=== PATIENT | male | born 1970 | race Caucasian/White ===

== ENCOUNTER 2021-04-04 07:28 | Emergency (ER) | payer MEDICAID, OTHER ==
[2021-04-04 07:46] VITALS: BP 146/101
[2021-04-04] MEDS ORDERED: PROPARACAINE 0.5% OPHTH DROPS 15 ML LEFTEYE STA (07:49)
--- NOTE | 2021-04-04 08:29 | ED Physician Documentation ---
PD HPI OPHTHO - Stated complaint Stated Complaint: SCRATCHED LT EYE - Chief complaint Chief Complaint: Heent - History obtained from History obtained from: Patient - Additional information Additional information: Pt comes to the ED c/o L eye redness, irritation, and drainage for the past 24 hours. He states that he has had seasonal allergies, and thinks he rubbed his eye too much, and scratched it. No distinct incidence of noticing a FB enter his eye. No fevers, chills, or other signs of illness. Pt does not wear contacts, but does use glasses. No change in vision in L eye. Review of Systems Ten Systems: 10 systems reviewed and negative Constitutional: reports: Reviewed and negative Eyes: reports: Photophobia, Discharge, Irritation Ears: reports: Reviewed and negative Nose: reports: Reviewed and negative Throat: reports: Reviewed and negative Cardiac: reports: Reviewed and negative Respiratory: reports: Reviewed and negative GI: reports: Reviewed and negative : reports: Reviewed and negative Skin: reports: Reviewed and negative Musculoskeletal: reports: Reviewed and negative Neurologic: reports: Reviewed and negative Psychiatric: reports: Reviewed and negative Endocrine: reports: Reviewed and negative Immunocompromised: reports: Reviewed and negative PD PAST MEDICAL HISTORY - Past Medical History Past Medical History: Yes Endocrine/Autoimmune: HyPOthyroidism : Other Other Past Medical History: non-hodgkins lymphoma, renal failure - Past Surgical History Past Surgical History: Yes General: Other Ortho: Hip replacement - Present Medications Home Medications: Ambulatory Orders Medication Instructions Recorded Confirmed Gentamicin 0.3% Ophth Drops 1 drops OPTH BID #5 ml 04/04/21 [Garamycin] Levothyroxine [Synthroid] 1 tab DAILY 04/04/21 04/04/21 Metoprolol Tartrate [Lopressor] 50 mg DAILY 04/04/21 04/04/21 Mifordis 360 mg BID 04/04/21 04/04/21 Prednisone [Madhu] 5 mg DAILY 04/04/21 04/04/21 Tacrolimus [Prograf] 2 mg PO DAILY 04/04/21 04/04/21 allopurinoL [Zyloprim] 1 tab DAILY 04/04/21 04/04/21 - Allergies Allergies/Adverse Reactions: Allergies Allergy/AdvReac Type Severity Reaction Status Date / Time No Known Drug Allergies Allergy Verified 04/04/21 07:46 - Social History Does the pt smoke?: No Smoking Status: Never smoker Does the pt drink ETOH?: Yes Does the pt have substance abuse?: No PD ED PE NORMAL - Vitals Vital signs reviewed: Yes - General General: Alert and oriented X 3, No acute distress, Well developed/nourished - HEENT HEENT: Atraumatic, PERRL, EOMI, Moist mucous membranes, Other (L eye conjunctival injection, tearing, extra mucus production. No FB. Hazy corneal abrasion in 5:00-8:00 position with few punctate lesions.) - Neck Neck: Supple, no meningeal sign - Respiratory Respiratory: No respiratory distress - Derm Derm: Warm and dry - Extremities Extremities: No deformity - Neuro Neuro: Alert and oriented X 3 - Psych Psych: Normal mood, Normal affect Results - Vitals Vitals: Oxygen O2 Source Room air PD MEDICAL DECISION MAKING - ED course Complexity details: considered differential, d/w patient ED course: D/w pt that exam is consistent with conjunctivitis. We will start topical abx. Pt is advised not to rub his eye. No FB identified. Departure - Departure Disposition: 01 Home, Self Care Clinical Impression: Conjunctivitis Qualifiers: Conjunctivitis type: acute Acute conjunctivitis type: unspecified Laterality: left Qualified Code(s): H10.32 - Unspecified acute conjunctivitis, left eye Corneal abrasion, left Qualifiers: Encounter type: initial encounter Qualified Code(s): S05.02XA - Injury of conjunctiva and corneal abrasion without foreign body, left eye, initial encounter Condition: Stable Instructions: ED Conjunctivitis Nonspecific, ED Eye Injury Corneal Abrasion Prescriptions: Gentamicin 0.3% Ophth Drops [Garamycin] 1 drops OPTH BID #5 ml Discharge Date/Time: 04/04/21 08:34
== END 2021-04-04 08:34 | disposition home or self-care (01) ==
LOC: ED 07:28
DX: H10.32 Unspecified acute conjunctivitis, left eye (principal); S05.02XA Injury of conjunctiva and corneal abrasion without foreign body, left eye, initial encounter; X58.XXXA Exposure to other specified factors, initial encounter
CPT/HCPCS: 99282; 99284; J3490